=== PATIENT | male | born 1980 | race Caucasian/White ===

== ENCOUNTER 2020-12-12 02:04 | Emergency (ER) | payer SELFPAY ==
[2020-12-12 02:14] VITALS: BP 148/85; PULSE 95; RESP 15; TEMP 37; O2SAT 97; BMI 23.7
--- NOTE | 2020-12-12 02:23 | XRR_ITS ---
PROCEDURE INFORMATION: Exam: XR Right Foot Exam date and time: 12/12/2020 4:12 AM Age: 40 years old Clinical indication: Injury or trauma; Fall; Blunt trauma; Foot; Right; Additional info: Foot injury TECHNIQUE: Imaging protocol: XR Right foot. Views: 3 or more views. COMPARISON: No relevant prior studies available. FINDINGS: Bones/joints: Normal. Soft tissues: Normal. XR/XR foot RT min 3V* [id number] IMPRESSION: No acute findings.
[2020-12-12 04:18] VITALS: PULSE 76
[2020-12-12 04:58] VITALS: RESP 18
[2020-12-12] MEDS: oxyCODONE-APAP 10-325 mg Tablet 1 TAB PO (04:58)
--- NOTE | 2020-12-12 04:59 | ED_ITS ---
HPI - Extremity Problem General: Chief complaint: Extremity Injury, Lower Stated complaint: R Foot Injury Time Seen by Provider: 12/12/20 04:16 History of Present Illness: HPI Narrative: Patient is well-appearing 40-year-old male seen for right foot pain. He states that he struck the midfoot on a stair accidentally as he was walking tonight. He complains of pain and swelling which he rates as 12 of 10, sharp, worse with weightbearing and better with rest. He has not taken any medication for the pain. Review of Systems General: Reports: 10 or more systems reviewed and unremarkable except in HPI and below Physical Exam Extremity: OTHER: There is moderate swelling of the right midfoot, with exquisite pain with palpation and manipulation of the midfoot. He is neurovascularly intact distally. Course Vital Signs: Vital signs: Vital Signs Temperature 98.6 F 12/12/20 02:14 Pulse Rate 76 12/12/20 04:18 Respiratory Rate 18 12/12/20 04:58 Blood Pressure 148/85 12/12/20 02:14 Pulse Oximetry 97 12/12/20 02:14 MDM - Extremity (Nontraumatic) MDM Narrative: Medical decision making narrative: X-rays of the right foot showed no fracture or dislocation. I suspect midfoot sprain. He will be given a postop shoe and crutches and follow-up to podiatry as well as a short course of oxycodone for pain. He shows good understanding and agrees to the plan. Discharge Plan Discharge Patient Disposition: Home Clinical Impression: Pain of right midfoot Foot sprain Qualifiers: Encounter type: initial encounter Laterality: right Qualified Code(s): S93.601A - Unspecified sprain of right foot, initial encounter Condition: Stable Prescriptions: New oxycodone 5 mg capsule 5 mg PO Q6H Qty: 14 RF: 0 Discharge Orders: Discharge ED (Routine); Ordered 12/12/20 Ordered By: Marlon Moar Referrals: Alvarez Gill MD [Primary Care Provider] - Discharge Diet: Usual diet Discharge Activity: Increase activity as tolerated Patient Instructions: Opioid Safety Activity Restrictions/Additional Instructions: Fortunately, there does not appear to be a fracture in your foot. All the bones are intact and well aligned. You do, however, have significant swelling of the midfoot concerning for sprain. Please use the crutches and postop shoe as needed and weight-bear as tolerated. It is best to follow-up with podiatry as they can help you longitudinally with this problem. Coding Level of Care Code ED Template Reproduction Technician for Jolanta Hagan
[2020-12-12 06:00] VITALS: BP 128/88; PULSE 69; RESP 18; TEMP 36.1; O2SAT 99
--- NOTE | 2020-12-12 09:09 | DCPLANNER ---
janitorial manager had message to schedule a follow up appointment for patient with ortho. janitorial manager called the ortho clinic, spoke with Daysi, gave clinic patients information. janitorial manager was told that patients information would be printed and reviewed. Clinic will call patient with appointment information.
--- NOTE | 2020-12-15 10:32 | DCPLANNER ---
Patient had a follow up appointment scheduled for 12.14.20 with ortho - patient did not attend appointment.
== END 2020-12-12 06:05 | disposition home or self-care (01) ==
PROVIDERS: Emergency Provider Student in an Organized Health Care Education/Training Program; PCP Family Medicine
DX: S93.601A Unspecified sprain of right foot, initial encounter (principal); W22.8XXA Striking against or struck by other objects, initial encounter
CPT/HCPCS: 73630; 99283; E0114

== ENCOUNTER 2021-06-19 17:27 | Emergency (ER) | payer SELFPAY ==
[2021-06-19 17:44] VITALS: BP 148/82; PULSE 86; RESP 16; TEMP 36.6; O2SAT 99; BMI 23.1
[2021-06-19 18:11] VITALS: PULSE 84; RESP 18; O2SAT 97
--- NOTE | 2021-06-19 18:15 | XRR_ITS ---
PROCEDURE INFORMATION: Exam: XR Chest Exam date and time: 06/19/2021 6:15 PM Age: 41 years old Clinical indication: Pain; Right-sided; Patient HX: RT arm numbness; Additional info: Paresthesia TECHNIQUE: Imaging protocol: XR of the chest. Views: 1 view. COMPARISON: No relevant prior studies available. FINDINGS: Lungs: Unremarkable. No consolidation. Pleural spaces: Unremarkable. No pleural effusion. No pneumothorax. Heart/Mediastinum: Unremarkable. No cardiomegaly. Bones/joints: Unremarkable. XR/XR chest 1V portable [id number] IMPRESSION: No acute findings. Radiation Dose CTDIVOL = (mGy): DLP = (mGy-cm)
--- NOTE | 2021-06-19 18:15 | CTR_ITS ---
PROCEDURE INFORMATION: Exam: CT Head Without Contrast Exam date and time: 06/19/2021 6:15 PM Age: 41 years old Clinical indication: Weakness, extremity; Right; Additional info: Paresthesia TECHNIQUE: Imaging protocol: Computed tomography of the head without contrast. Radiation optimization: All CT scans at this facility use at least one of these dose optimization techniques: automated exposure control; mA and/or kV adjustment per patient size (includes targeted exams where dose is matched to clinical indication); or iterative reconstruction. COMPARISON: No relevant prior studies available. RADIATION DOSE METRICS: Total DLP (mGy-cm): 827.93 FINDINGS: Brain: Normal. No hemorrhage. Unremarkable white matter. No mass effect. Cerebral ventricles: No ventriculomegaly. Paranasal sinuses: Visualized sinuses are unremarkable. No fluid levels. Mastoid air cells: Visualized mastoid air cells are well aerated. Bones/joints: Unremarkable. No acute fracture. Soft tissues: Unremarkable. CT/CT head wo con* [id number] IMPRESSION: No acute intracranial abnormality. Radiation Dose CTDIVOL = (mGy): DLP = 827.93 (mGy-cm)
--- NOTE | 2021-06-19 18:16 | ECG_ITS ---
[facility] Test Date: 2021-06-19 Pat Name: Apolinar Rivera Department: Room: Gender: Male Med Surg Rn: : 1980 Requested By: Tera Montalvo Order Number: [id number] Oziel MD: Marlena Guajardo M.D. Measurements Intervals Doole Rate: 75 P: 58 NV: 166 QRS: 47 QRSD: 94 T: 61 QT: 374 QTc: 420 Interpretive Statements SINUS RHYTHM No previous ECG available for comparison Electronically Signed On 06-20-2021 9:59:20 PROJECT MANAGEMENT by Marlena Guajardo M.D. [id number]
--- NOTE | 2021-06-19 18:54 | W.ED.EXTPRO ---
HPI - Extremity Problem General: Chief complaint: Extremity Problem,Nontraumatic Stated complaint: R ARM PAIN Time Seen by Provider: 06/19/21 17:59 Source: patient Mode of arrival: ambulatory Limitations: no limitations History of Present Illness: HPI Narrative: 41-year-old male states that since yesterday has been having some numbness down his right arm. States it seems to be intermittent in nature he had some numbness in his left arm to be only lasted minutes he states that the numbness in his right whole arm is been consistent. He states he just feels this tingling sensation and states that his shoulder goes down denies any weakness denies any headache denies any neck pain denies any neck issues. Denies any other deficits. Associated symptoms: Deny chest pain, fever(s) or rash Review of Systems Const: Denies: fever(s), chills, body aches or change in appetite Eyes: Denies: blurry vision or eye discomfort ENMT: Denies: throat pain or dental pain Card: Denies: chest pain Resp: Denies: dyspnea GI: Denies: abdominal pain, nausea, vomiting or diarrhea : Denies: dysuria Musc: Denies: neck pain or back pain Skin/Breast: Denies: rash Neuro: Reports: sensory changes Psych: Denies: depression Juan/Lymph: Denies: easy bruising All/Imm: Denies: urticaria Physical Exam Const: COMMON NORMALS: no acute distress, patient oriented x3 and healthy appearing HENMT: COMMON NORMALS: normocephalic and atraumatic HEAD & SCALP: normocephalic and atraumatic Eye: COMMON NORMALS: Equal, round and reactive pupils present and EOMs intact bilaterally PUPIL: Yes Equal, round and reactive pupils present Neck/C-Spine: COMMON NORMALS: full ROM and supple Chest: COMMONS NORMALS: normal inspection of the chest and normal palpation of entire chest wall Resp: COMMON NORMALS: normal respiratory effort, No retractions, No use of accessory muscles and clear to auscultation bilaterally AUSCULTATION: clear to auscultation bilaterally Cardio: COMMON NORMALS: regular rate, regular rhythm and No murmurs present (Cardio) RATE: regular rate RHYTHM: regular rhythm GI: COMMON NORMALS: Normal to inspection, nondistended, normoactive bowel sounds present, Soft to palpation, non-tender and no masses PALPATION: Yes Soft to palpation Extremity: COMMON NORMALS: normal to inspection and full ROM Neuro: COMMON NORMALS: patient oriented x3, moves all extremities and no focal motor deficits CRANIAL NERVES: Yes CN normal except as noted SPEECH: speech normal GAIT: Yes Normal gait present MOTOR EXAM: 5/5 motor strength present throughout OTHER: Slight decrease sensation to right arm Psych: COMMON NORMALS: mental status grossly normal, Normal thought process present and cooperative THOUGHT PROCESS: Normal thought process present Skin: COMMON NORMALS: no rashes or lesions noted and no wounds GENERAL SKIN EXAM: no rashes or lesions noted Course Vital Signs: Vital signs: Vital Signs Temperature 97.9 F 06/19/21 17:44 Pulse Rate 74 06/19/21 20:39 Respiratory Rate 18 06/19/21 20:32 Blood Pressure 137/91 06/19/21 20:39 Pulse Oximetry 97 06/19/21 20:39 MDM - Extremity (Nontraumatic) MDM Narrative: Medical decision making narrative: Patient presents here with paresthesias to his right arm his exam here is benign he has no other focal deficits believe this is possibly episodic or neck related I do not believe that he is having a stroke he is stable for discharge at this point we will get him follow-up with neurology informed if he has any weakness or worsening symptoms he is return immediately he understands and agrees to the plan. Lab Data: Labs: Lab Results 06/19/21 06/19/21 19:46 19:46 WBC 7.0 10^3/uL 10^3/ uL (4.0-10.0) RBC 4.96 10^6/uL 10^6 /uL (4.1-5.3) Hgb 13.7 g/dL g/dL (11.7-16.6) Hct 41.5 % L % (42.0-52.0) MCV 83.7 fl fl (80-94) MCH 27.6 pg L pg (28.0-34.0) MCHC 33.0 g/dL g/dL (30.0-36.0) RDW 13.4 % % (12.1-15.1) Plt Count 308 10^3/cmm 10^3 /cmm (130-400) MPV 8.9 fL fL (7.4-10.4) Neut % (Auto) 46.4 % % Lymph % (Auto) 42.6 % % [place] % (Auto) 6.6 % % Eos % (Auto) 3.2 % % Baso % (Auto) 0.9 % % Neut # (Auto) 3.25 10^3/uL 10^3 /uL (1.8-7.7) Lymph # (Auto) 3.0 10^3/uL 10^3/ uL (0.8-4.8) [place] # (Auto) 0.5 10^3/uL 10^3/ uL (0.2-0.9) Eos # (Auto) 0.2 10^3/uL 10^3/ uL (0.0-0.8) Baso # (Auto) 0.1 10^3/uL 10^3/ uL (0.0-0.1) Nucleated RBC % (a uto) 0 % % Nucleated RBCs # 0.0 /100WBC /100W BC Sodium 137 mmol/L mmol/L (136-145) Potassium 4.2 mmol/L mmol/L (3.5-5.1) Chloride 106 mmol/L mmol/L (98-107) Carbon Dioxide 23 mmol/L mmol/L (22-29) Anion Gap 12.2 (5-19) BUN 14 mg/dL mg/dL (6-20) Creatinine 0.7 mg/dL mg/dL (0.7-1.2) GFR Calculation 123.7 mL/min mL/m in (90-130) Glucose 83 mg/dL mg/dL (65-115) Calculated Osmolal ity 284 mOsm/kg L mOs m/kg (285-295) Calcium 8.7 mg/dL mg/dL (8.5-10.5) Total Bilirubin 0.6 mg/dL mg/dL (0.15-1.2) AST 23 U/L U/L (0-40) ALT 16 U/L U/L (0-41) Alkaline Phosphata se 95 IU/L IU/L (40-130) Total Protein 6.5 g/dL L g/dL (6.6-8.7) Albumin 3.6 g/dL g/dL (3.5-5.2) Globulin 2.9 g/dL g/dL (1.3-4.6) Imaging Data^: CT Head: Attestation: I personally reviewed and interpreted this imaging study as follows: Radiologist's impression: [facility] [address] [place] [address]. [place] [address] CT Scan Report Signed Patient: Apolinar Rivera Unit #: [id number] : 1980 Age/Sex: 41 / M ADM Date: 06/19/21 Loc: ER Room/Bed: Attending Dr: Ordering Provider/Ordering MD: Tera Montalvo MD Date of Service: 06/19/21 Procedure(s): CT head wo con* [id number] Accession Number(s): [id number] Report Number: [id number] PROCEDURE INFORMATION: Exam: CT Head Without Contrast Exam date and time: 06/19/2021 6:15 PM Age: 41 years old Clinical indication: Weakness, extremity; Right; Additional info: Paresthesia TECHNIQUE: Imaging protocol: Computed tomography of the head without contrast. Radiation optimization: All CT scans at this facility use at least one of these dose optimization techniques: automated exposure control; mA and/or kV adjustment per patient size (includes targeted exams where dose is matched to clinical indication); or iterative reconstruction. COMPARISON: No relevant prior studies available. RADIATION DOSE METRICS: Total DLP (mGy-cm): 827.93 FINDINGS: Brain: Normal. No hemorrhage. Unremarkable white matter. No mass effect. Cerebral ventricles: No ventriculomegaly. Paranasal sinuses: Visualized sinuses are unremarkable. No fluid levels. Mastoid air cells: Visualized mastoid air cells are well aerated. Bones/joints: Unremarkable. No acute fracture. Soft tissues: Unremarkable. CT/CT head wo con* [id number] IMPRESSION: No acute intracranial abnormality. Radiation Dose CTDIVOL = (mGy): DLP = 827.93 (mGy-cm) Dictated By: Lavon Freed MD Signed By: Lavon Freed MD Signed Date/Time: 06/19/21 184 DD/ 14 CXR: Radiologist's impression: [facility] [address] [facility] [place] [address] XRay Report Signed Patient: Apolinar Rivera Unit #: [id number] : 1980 Age/Sex: 41 / M ADM Date: 06/19/21 Loc: ER Room/Bed: Attending Dr: Ordering Provider/Ordering MD: Tera Montalvo MD Date of Service: 06/19/21 Procedure(s): XR chest 1V portable [id number] Accession Number(s): [id number] Report Number: [id number] PROCEDURE INFORMATION: Exam: XR Chest Exam date and time: 06/19/2021 6:15 PM Age: 41 years old Clinical indication: Pain; Right-sided; Patient HX: RT arm numbness; Additional info: Paresthesia TECHNIQUE: Imaging protocol: XR of the chest. Views: 1 view. COMPARISON: No relevant prior studies available. FINDINGS: Lungs: Unremarkable. No consolidation. Pleural spaces: Unremarkable. No pleural effusion. No pneumothorax. Heart/Mediastinum: Unremarkable. No cardiomegaly. Bones/joints: Unremarkable. XR/XR chest 1V portable [id number] IMPRESSION: No acute findings. Radiation Dose CTDIVOL = (mGy): DLP = (mGy-cm) Dictated By: Lavon Freed MD Signed By: Lavon Freed MD Signed Date/Time: 06/19/21 1840 DD/ 1815 EKG Data^: EKG 1: Attestation: I personally reviewed and interpreted this EKG as follows: EKG interpretation date: 06/19/21 EKG interpretation time: 19:26 Interpretation: nsr hr [address] or t wave abnormalities qrs 94 qtc 404 Discharge Plan Discharge Patient Disposition: Home Clinical Impression: Paresthesia Condition: Stable Prescriptions: No Action oxycodone 5 mg capsule 5 mg PO Q6H Qty: 14 RF: 0 Discharge Orders: Discharge ED (Routine); Ordered 06/19/21 Ordered By: Tera Montalvo Referrals: Janie Calvert MD [Physician] - 1-3 days Alvarez Gill MD [Primary Care Provider] - Discharge Diet: Advance as tolerated Discharge Activity: Resume usual activity Patient Instructions: Paresthesia (ED) Coding Level of Care Code ED Cardroom Supervisor for Chg Fwd Exam Comprehensive NIH stroke score NIHSS Level Of Consciousness - 1a: 0 Level Of Consciousness Questions - 1b: Both Correct Level Of Consciousness Commands - 1c: Both Correct Best Gaze - 2: Normal Visual Youssef - 3: No Visual Loss Facial Palsy - 4: Normal Motor Arm Right - 5: No Drift Motor Arm Left - 5: No Drift Motor Leg Right - 6: No Drift Motor Leg Left - 6: No Drift Limb Ataxia - 7: Absent Sensory - 8: Mild To Moderate Loss Best Language - 9: No Aphasia Dysarthia - 10: Normal Extinction And Inattention - 11: 0 Score Total Score: 1
[2021-06-19 19:12] VITALS: BP 137/91; PULSE 85; O2SAT 98
[2021-06-19 20:02] LABS: Basophils # 0.1 10^3/uL (0.0-0.1); Basophils % 0.9 %; Eosinophils # 0.2 10^3/uL (0.0-0.8); Eosinophils % 3.2 %; Hematocrit 41.5 % (42.0-52.0); Hemoglobin 13.7 g/dL (11.7-16.6); Lymphocytes % 42.6 %; Mean Corpuscular Hemoglobin 27.6 pg (28.0-34.0); Mean Corpuscular Volume 83.7 fl (80-94); Mean Platelet Volume 8.9 fL (7.4-10.4); Monocytes # 0.5 10^3/uL (0.2-0.9); Monocytes % 6.6 %; Neutrophils # 3.25 10^3/uL (1.8-7.7); Neutrophils % 46.4 %; Nucleated Red Blood Cells % 0 %; Platelet Count 308 10^3/cmm (130-400); Red Blood Count 4.96 10^6/uL (4.1-5.3); Red Cell Distribution Width 13.4 % (12.1-15.1)
[2021-06-19 20:27] LABS: Alanine Aminotransferase 16 U/L (0-41); Albumin Level 3.6 g/dL (3.5-5.2); Alkaline Phosphatase 95 IU/L (40-130); Blood Urea Nitrogen 14 mg/dL (6-20); Calcium 8.7 mg/dL (8.5-10.5); Carbon Dioxide 23 mmol/L (22-29); Chloride 106 mmol/L (98-107); Globulin 2.9 g/dL (1.3-4.6); Glomerular Filtration Rate 123.7 mL/min (90-130); Glucose 83 mg/dL (65-115); Osmolality Calculated 284 mOsm/kg (285-295); Sodium 137 mmol/L (136-145); Total Bilirubin 0.6 mg/dL (0.15-1.2); Total Protein 6.5 g/dL (6.6-8.7)
[2021-06-19 20:28] LABS: Anion Gap 12.2 (5-19)
[2021-06-19 20:29] LABS: Aspartate Amino Transferase 23 U/L (0-40); Potassium 4.2 mmol/L (3.5-5.1)
[2021-06-19 20:32] VITALS: RESP 18
[2021-06-19 20:39] VITALS: BP 137/91; PULSE 74; O2SAT 97
--- NOTE | 2021-06-20 06:14 | DCPLANNER ---
studio operations manager had message to schedule a follow up appointment for patient with neurology. studio operations manager emailed patients information to the neurology clinic. Patients information will be printed and reviewed. Clinic will call patient with appointment information.
--- NOTE | 2021-07-02 07:31 | DCPLANNER ---
commissions manager was contacted by Dr. Bailey office, was told that clinic attempted to call patient on 2 occasions and patient does not have a voicemail set up.
== END 2021-06-19 20:40 | disposition home or self-care (01) ==
PROVIDERS: Emergency Provider Emergency Medicine; PCP Family Medicine
DX: R20.2 Paresthesia of skin (principal)
CPT/HCPCS: 70450; 71045; 80053; 85025; 93005; 99283

== ENCOUNTER 2024-05-09 18:25 | Emergency (ER) | payer OTHER, SELFPAY ==
[2024-05-09 18:32] VITALS: BP 154/98; PULSE 125; TEMP 37; O2SAT 100; BMI 23.1
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
[2024-05-09 20:18] VITALS: BP 158/82; PULSE 100; RESP 16; O2SAT 100
== END 2024-05-09 20:19 | disposition home or self-care (01) ==
PROVIDERS: Emergency Provider Nurse Practitioner Family; PCP Family Medicine
DX: S20.311A Abrasion of right front wall of thorax, initial encounter (principal); S70.211A Abrasion, right hip, initial encounter; S70.01XA Contusion of right hip, initial encounter; V86.59XA Driver of other special all-terrain or other off-road motor vehicle injured in nontraffic accident, initial encounter
CPT/HCPCS: 72100; 73502; 99284